=== PATIENT | male | born 1960 | race Caucasian/White ===

== ENCOUNTER 2023-06-12 07:20 | Emergency (ER) | payer OTHER ==
[~2023-06-12] VITALS: Ht 170.2 cm; Wt 106.6 kg
[~2023-06-12 07:20] MED LIST: HYDR-3927 PO; IBUP-1971 PO
--- NOTE | 2023-06-12 07:40 | NUR ---
Patient to ER bed 6 to gown for evaluation. Side rails up. Report given to JASSI DAMON.
[2023-06-12 07:45] VITALS: BP_SYST 115; BP_SYST 132; PULSE 66; RESP 18; TEMP 97.8; O2SAT 100
--- NOTE | 2023-06-12 07:45 | NUR ---
PT BIB SELF AWAKE AND ALERT AOX4, NO SOB OR DISTRESS. PT C/O SWELLING TO R CHEST, PAIN 04/29. PT WAS HERE YESTERDAY IN ER FOR MECHANICAL FALL AT HOME, WHILE WASHING HIS CAR. PT HAD PAIN TO R SHOULDER AND R KNEE, X-RAY AND CT WAS COMPLETED AND ALL IMAGES WERE NEGATIVE. PT STATED HE NOTICED THE SWELLING TO CHEST WHEN HE WOKE UP THIS MORNING AT 0400. PT HAS HX OF HTN, CKD. PT DENIES PAST SX.
--- NOTE | 2023-06-12 07:48 | NUR ---
ER at bedside examining patient.
--- NOTE | 2023-06-12 07:55 | NUR ---
Patient given written and verbal discharge instructions and verbalizes understanding. ER MD DR LOVELACE discussed with patient the results and treatment provided. Patient in stable condition. ID arm band removed. Patient educated on pain management and to follow up with PMD. Pain Scale 6/10. Opportunity for questions provided and answered. Medication side effect fact sheet provided.
[2023-06-12 08:15] VITALS: BP_SYST 132; PULSE 74; RESP 17; TEMP 97.3; O2SAT 97
== END 2023-06-12 07:55 | disposition home or self-care (01) ==
LOC: SED 07:20
DX: S20.211A Contusion of right front wall of thorax, initial encounter (principal); I10 Essential (primary) hypertension; Z79.899 Other long term (current) drug therapy; W19.XXXA Unspecified fall, initial encounter; Y93.89 Activity, other specified; Y92.89 Other specified places as the place of occurrence of the external cause; Y99.8 Other external cause status
CPT/HCPCS: 99281